=== PATIENT | female | born 1950 | race Caucasian/White ===

== ENCOUNTER → 2018-04-20 | Outpatient (CLI) | payer MEDICARE, OTHER | END | disposition home or self-care (01) | LOC: CFH 10:38 | PROVIDERS: ATTEND Family Medicine | DX: Z12.31 Encounter for screening mammogram for malignant neoplasm of breast (principal); Z13.820 Encounter for screening for osteoporosis; E28.39 Other primary ovarian failure | CPT/HCPCS: 77080; 77067 ==

== ENCOUNTER 2019-07-09 10:59 | Outpatient (CLI) | payer MEDICARE | END 2019-07-09 23:59 | disposition home or self-care (01) | LOC: CFH 10:59 | PROVIDERS: ATTEND Family Medicine | DX: Z12.31 Encounter for screening mammogram for malignant neoplasm of breast (principal); N64.89 Other specified disorders of breast | CPT/HCPCS: 77067 ==

== ENCOUNTER 2021-05-10 13:26 | Outpatient (CLI) | payer MEDICARE | END 2021-05-10 23:59 | disposition home or self-care (01) | LOC: CFH 13:26 | PROVIDERS: ATTEND Family Medicine | DX: Z12.31 Encounter for screening mammogram for malignant neoplasm of breast (principal) | CPT/HCPCS: 77063; 77067 ==